=== PATIENT | female | born 1950 | race Caucasian/White ===

== ENCOUNTER 2022-01-09 11:33 | Day surgery (SDC) | payer MEDICARE ==
[2022-01-09] MEDS ORDERED: Scopolamine 1.5 mg/72 hour Patch ONE (13:08)
[2022-01-09] MEDS ORDERED: Iopamidol 30 ML ONE (13:39)
[2022-01-09] MEDS ORDERED: Indomethacin 50 MG SUPP ONE (13:40)
[2022-01-09] MEDS ORDERED: Fentanyl 100 MCG/2 ML VIAL ONE (14:07)
[2022-01-09] MEDS ORDERED: cefTRIAXone\\ROCEPHIN 1 GM VIAL ONE (14:16)
[2022-01-09] MEDS ORDERED: PROPOFOL 20 ML ONE (14:17)
[2022-01-09] MEDS ORDERED: PHENYLEPHRINE-NS 100 MCG/ML 10 ML SYRINGE ONE (14:39)
[2022-01-09] MEDS ORDERED: diphenhydrAMINE 50 MG/ML VIAL ONE (14:58)
[2022-01-09] MEDS ORDERED: Iopamidol 0 ML FS ONE (15:02)
[2022-01-09] MEDS ORDERED: SUGAMMADEX SODIUM 200 MG/2 ML VIAL ONE (15:09)
[2022-01-09] MEDS ORDERED: Ketorolac Tromethamine 30 MG/ML VIAL ONE (16:37)
[2022-01-09] MEDS ORDERED: Ketorolac Tromethamine 15 MG/ML VIAL IVP PRN (16:45)
== END 2022-01-09 17:50 | disposition home or self-care (01) ==
LOC: CSHSDC 11:33
PROVIDERS: ATTEND Internal Medicine Gastroenterology
PROC: 0D768ZZ Dilation of Stomach, Via Natural or Artificial Opening Endoscopic (ICD-10-PCS; principal; 2022-01-09)
DX: K80.50 Calculus of bile duct without cholangitis or cholecystitis without obstruction (principal); K31.1 Adult hypertrophic pyloric stenosis; Z88.6 Allergy status to analgesic agent; Z88.8 Allergy status to other drugs, medicaments and biological substances
CPT/HCPCS: 43245; 43262; 74330; C1725; J0696; J1200; J1885; J2704; J3010; Q9966; Q9967